=== PATIENT | male | born 1990 | race Caucasian/White ===

== ENCOUNTER 2024-05-10 09:54 | Outpatient (CLI) | payer BC, SELFPAY ==
--- NOTE | ~2024-05-10 | XR_ITS ---
EXAMINATION: XR lumbar spine 2-3V, XR sacroiliac joints min 3V DATE: 05/10/2024 10:21 INDICATION: Low back pain TECHNIQUE: 1. Anteroposterior and lateral views of the lumbar spine, and cone-down lateral view of the lumbosacr al junction were obtained. 2. AP and left and right oblique views of the sacralized joints were obtained. COMPARISON: None. FINDINGS: Lumbar spine: 5 degrees lumbar dextrocurvature. Sagittal alignment is normal. Vertebral body and disc heights are n ormal. Visualized lung bases are clear with no pleural effusion. Sacroiliac joints: Sacral arches are intact. No fractures identified. Mild osteoarthritis at the bilateral sacroiliac mame ints with no erosions to suggest inflammatory sacroiliitis. There is bilateral decreased femoral head /neck offset which could predispose towards femoral acetabular impingement. Mild bilateral hip osteoa rthritis with relatively preserved joint space. Small marginal osteophytes along the femoral heads. IMPRESSION: 1. 5 degrees lumbar dextrocurvature. Otherwise normal lumbar spine. 2. Mild osteoarthritis at the bilateral sacralized joints. 3. Bilateral decreased femoral head/neck offset which could predispose towards cam-type femoral aceta bular impingement. Reviewed, dictated and finalized at location [facility] [employer] IMPRESSION: 1. 5 degrees lumbar dextrocurvature. Otherwise normal lumbar spine. 2. Mild osteoarthritis at the bilateral sacralized joints. 3. Bilateral decreased femoral head/neck offset which could predispose towards cam-type femoral acetabular impingement.
== END 2024-05-10 09:55 | disposition home or self-care (01) ==
LOC: MICIMG 09:57
PROVIDERS: PCP Family Medicine; Visit Provider Student in an Organized Health Care Education/Training Program
DX: M41.86 Other forms of scoliosis, lumbar region (principal); M47.818 Spondylosis without myelopathy or radiculopathy, sacral and sacrococcygeal region; M24.851 Other specific joint derangements of right hip, not elsewhere classified; M24.852 Other specific joint derangements of left hip, not elsewhere classified
CPT/HCPCS: 72100; 72202

== ENCOUNTER 2025-02-20 15:49 | Emergency (ER) | payer OTHER, SELFPAY ==
[2025-02-20 15:49] VITALS: BP 160/100; PULSE 97; RESP 18; TEMP 36.6; O2SAT 99
--- NOTE | 2025-02-20 16:07 | ED_ITS ---
HPI - General Adult General Chief complaint: Wound/Laceration Stated complaint: right middle finger injury Time Seen by Provider: 02/20/25 16:00 History of Present Illness HPI narrative: Pito is a 34M with a PMH of teeth grinding that presented to the ED with a right middle finger laceration from a mower accident. He has no other injuries. Related Data Home Medications ?Medication ?Instructions ?Recorded ?Confirmed ?Last Taken ?Type No Home Medications 02/04/21 02/20/25 U nknown History Allergies Allergy/AdvReac Type Severity Reaction Status Date / Time No Known Allergies Allergy Mild Verified 02/20/25 15:59 Review of Systems Review of Systems: All systems reviewed & are unremarkable except as noted in HPI and below [facility] Surgical History Surgical History History of left inguinal hernia Social History Social History Smoking status: Never smoker Second hand tobacco smoke exposure: No Alcohol intake: never Substance use: never Substance use type: does not use Living arrangements: with family Occupation/Education: occupation Gender identity (if verbalized by the patient): Male Sexual Orientation (if Verbalized by the Patient): Straight or Heterosexual Spiritual care concerns: No Exam Const: General: cooperative, healthy appearing, comfortable, no acute distress, well developed, alert, awake and Physically active Orientation/consciousness: oriented to person, oriented to place and oriented to time HENMT: Head: normal to inspection, normocephalic and atraumatic Ears: hearing grossly normal bilaterally and external ears normal Face/Nose/Sinus: Normal external nose present Eyes: General: appearance normal, both eyes and all related structures Periorbital: periorbital findings normal Sclera: sclerae normal Pupils: Equal, round and reactive pupils present Neck: Neck: normal visual inspection Chest: Chest palpation & inspection: normal inspection of the chest Resp: Effort & Inspection: normal respiratory effort, able to speak in complete sentences and no respiratory distress Skin: General skin exam: normal color and no rashes or lesions noted Other: Trip of right 3rd digit had the superficial skin removed with a small laceration Neuro: General: oriented to person, oriented to place and oriented to time Cranial nerves: Yes Equal, round and reactive pupils present Extrem: General: normal to inspection Course Course Emergency Course: Wound irrigated and cleaned. Dermabond placed. Given Tdap. Vital Signs Vital signs: Vital Signs Temperature 97.8 F 02/20/25 15:49 Pulse Rate 97 02/20/25 15:49 Respiratory Rate 18 02/20/25 15:49 Blood Pressure 160/100 H 02/20/25 15:49 Pulse Oximetry 99 02/20/25 15:49 Oxygen Delivery Room Air 02/20/25 15:49 Temperature 97.8 F 02/20/25 15:49 Pulse Rate 97 02/20/25 15:49 Respiratory Rate 18 02/20/25 15:49 Blood Pressure 160/100 H 02/20/25 15:49 Pulse Oximetry 99 02/20/25 15:49 Oxygen Delivery Room Air 02/20/25 15:49 Procedures Laceration Laceration 1: Date: 02/20/25 Time: 16:10 Site: other (R third finger) Side (If applicable): right Size (cm): 1 Description: irregular Depth: simple, single layer ====== Skin Level ====== Skin layer closed with: dermabond ====== Subcutaneous Layer ====== ====== Muscle Layer ====== ====== Tendon Layer ====== Medical Decision Making Vital Signs Vital Signs: Vital Signs Temperature 97.8 F 02/20/25 15:49 Pulse Rate 97 02/20/25 15:49 Respiratory Rate 18 02/20/25 15:49 Blood Pressure 160/100 H 02/20/25 15:49 Pulse Oximetry 99 02/20/25 15:49 Oxygen Delivery Room Air 02/20/25 15:49 Temperature 97.8 F 02/20/25 15:49 Pulse Rate 97 02/20/25 15:49 Respiratory Rate 18 02/20/25 15:49 Blood Pressure 160/100 H 02/20/25 15:49 Pulse Oximetry 99 02/20/25 15:49 Oxygen Delivery Room Air 02/20/25 15:49 Discharge Plan Discharge Clinical Impression: Laceration Patient Disposition: Home Condition: Stable Instructions: Skin Adhesive Care (ED) Patient Language: Nigerien Prescriptions: No Action No Home Medications Follow-up/Referrals: Mook Stewart MD [Primary Care Provider, Family Practice]
[2025-02-20] MEDS: TETANUS,DIPHTHERIA,AC PERTUSSIS ADULT 0.5 ML (ADACEL) IM (16:14)
--- NOTE | 2025-02-20 16:18 | PC.NURSE ---
MD Ashley made aware of pt BP prior to discharge. MD approves pt for discharge with elevated BP.
== END 2025-02-20 16:25 | disposition home or self-care (01) ==
LOC: CHSED 16:13
PROVIDERS: Emergency Provider Family Medicine; PCP Family Medicine
DX: S61.212A Laceration without foreign body of right middle finger without damage to nail, initial encounter (principal); W45.8XXA Other foreign body or object entering through skin, initial encounter; Z23 Encounter for immunization
CPT/HCPCS: 12001; 90471; 90715; 99282